=== PATIENT | female | born 1945 | race Caucasian/White ===

== ENCOUNTER 2020-07-13 18:28 | Emergency (ER) | payer MEDICARE, MEDICAID ==
[2020-07-13] MEDS ORDERED: Morphine 4 MG/ML VIAL ONE (19:04)
[2020-07-13] MEDS ORDERED: Ondansetron PF 4 MG/2 ML Vial ONE (19:05)
[2020-07-13 19:15] LABS: INR-International Normal Ratio 1.1; PTT 36.8 sec (22.9-36.1); Prothrombin Time 14.6 sec (12.0-14.7)
[2020-07-13 19:24] LABS: #Lymphocytes 0.8 thou/uL (1.20-3.40); #Monocytes 0.3 thou/uL (0.11-0.59); #Neutrophils 1.9 thou/uL (1.40-6.50); %Basophils 0.7 % (0.0-1.0); %Eosinophils 1.5 % (0.0-10.0); %Lymphocytes 25.3 % (21.0-51.0); %Monocytes 10.5 % (0.0-10.0); %Neutrophils 62.1 % (42.0-75.0); ALT (SGPT) 15 U/L (8-55); AST (SGOT) 26 U/L (5-34); Albumin 3.8 g/dL (3.4-4.8); Alkaline Phosphatase 60 U/L (40-110); Anion Gap 17 mmol/L (10-20); BUN (Urea Nitrogen) 11 mg/dL (9.8-20.1); Bilirubin, Total 0.8 mg/dL (0.2-1.2); Calc. Creatinine Clearance 0 mL/min (70-130); Calcium 8.9 mg/dL (7.8-10.44); Carbon Dioxide 24 mmol/L (23-31); Chloride 104 mmol/L (98-107); Globulin 2.6 g/dL (2.4-3.5); Glucose 97 mg/dL (83-110); Hemoglobin 12.8 g/dL (12.0-16.0); Lipase 61 U/L (8-78); Mean Corpuscular HGB CONC 31.9 g/dL (32.0-36.0); Mean Corpuscular Hemoglobin 29.3 pg (27.0-31.0); Mean Corpuscular Volume 91.7 fL (78.0-98.0); Mean Platelet Volume 8.1 fL (7.4-10.4); Platelet Count 105 thou/uL (130-400); Potassium 3.9 mmol/L (3.5-5.1); Protein, Total 6.4 g/dL (5.8-8.1); RBC Distribution Width 16.2 % (11.5-14.5); Red Blood Cell (RBC) Count 4.36 mill/uL (4.20-5.40); Sodium 141 mmol/L (136-145); White Blood Cell (WBC) Count 3.1 thou/uL (4.8-10.8)
[2020-07-13 19:55] LABS: Platelet Morphology Comment Appears Decreased
[2020-07-13 23:25] LABS: Bilirubin Negative (Negative); Blood, Urine Small (Negative); Clarity Hazy (Clear); Glucose, Urine (Dipstick) Negative (Negative); Ketone, Urine Negative (Negative); Leukocyte Small (Negative); Nitrite Negative (Negative); Protein, Urine (Dipstick) > or equal to 300 mg/dL (Neg-Trace); Specific Gravity, Urine 1.015 (1.005-1.030)
[2020-07-13 23:26] LABS: Bacteria/HPF 1+ HPF (None Seen); RBC/HPF 0-3 HPF (0-3); Squamous Epithelial 0-3 HPF (0-3); WBC/HPF Greater Than 50 HPF (0-3)
[2020-07-14 00:49] LABS: SARS-CoV-2 NAA Rapid Test Not Detected (NotDetected)
[2020-07-14] MEDS ORDERED: Ondansetron PF 4 MG/2 ML Vial ONE (01:05)
[2020-07-14] MEDS ORDERED: Cephalexin 250 MG CAP ONE (01:05)
[2020-07-14] MEDS ORDERED: Ondansetron ODT 4 MG TAB ONE (01:05)
== END 2020-07-14 01:18 | disposition home or self-care (01) ==
LOC: NAV ERS 18:28
DX: N39.0 Urinary tract infection, site not specified (principal); R93.5 Abnormal findings on diagnostic imaging of other abdominal regions, including retroperitoneum; I10 Essential (primary) hypertension; E78.5 Hyperlipidemia, unspecified; R19.7 Diarrhea, unspecified; K21.9 Gastro-esophageal reflux disease without esophagitis; E03.9 Hypothyroidism, unspecified; Z79.82 Long term (current) use of aspirin; Z79.899 Other long term (current) drug therapy
CPT/HCPCS: 0240U; 71045; 74177; 80053; 82274; 83690; 84484 ×2; 85025; 85610; 85730; 86850; 86900; 86901; 87086; 93005; 94760; 36415; 81003; 81015; 87077; 87186; 96374; 96375; 96376; J2270; J2405; Q0162